=== PATIENT | female | born 1955 | race Caucasian/White ===

== ENCOUNTER 2016-11-22 07:13 | Day surgery (SDC) | payer OTHER ==
[~2016-11-22 07:13] MED LIST: ATIVAN0.5 M1 PO; CITALOPRAM HBR20 M1 PO; DITROPAN XL5 M3 PO; FEMARA2.5 M1 PO; LISINOPRIL-HCT1 EAC2 PO; MOBIC15 M2 PO; ZOLPIDEM TARTRA10 M2 PO
== END 2016-11-22 13:13 ==
LOC: SRG 07:13 → SHSB 07:14 → ORW 08:28 → PACU 10:32 → SHSB 12:00
PROC: 0HBU0ZX Excision of Left Breast, Open Approach, Diagnostic (ICD-10-PCS; principal; 2016-11-22)
DX: N64.89 Other specified disorders of breast (principal); I10 Essential (primary) hypertension; M19.90 Unspecified osteoarthritis, unspecified site; F41.9 Anxiety disorder, unspecified; Z79.1 Long term (current) use of non-steroidal anti-inflammatories (NSAID); Z79.899 Other long term (current) drug therapy; Z87.891 Personal history of nicotine dependence; Z85.3 Personal history of malignant neoplasm of breast; Z92.21 Personal history of antineoplastic chemotherapy; Z92.3 Personal history of irradiation; Z90.711 Acquired absence of uterus with remaining cervical stump; Z96.652 Presence of left artificial knee joint; Z98.890 Other specified postprocedural states
CPT/HCPCS: J0690; J1170; J2405; J2765